=== PATIENT | male | born 1985 | race Caucasian/White ===

== ENCOUNTER 2021-08-28 10:30 | Inpatient (IN) | payer OTHER ==
[2021-08-28 11:04] VITALS: BMI 22.1
[2021-08-28] MEDS ORDERED: METOPROLOL TARTRATE 50 MG TABLET (FP) PO ONE (11:55)
[2021-08-28] MEDS ORDERED: IBUPROFEN 400 MG TABLET (FP) PO PRN (11:55)
[2021-08-28] MEDS ORDERED: LOPERAMIDE HCL 2 MG CAPSULE PO PRN (11:55)
[2021-08-28] MEDS ORDERED: BENZOCAINE/MENTHOL (CHLORASEPTIC ) LOZENGE MM PRN (11:55)
[2021-08-28] MEDS ORDERED: IBUPROFEN 600 MG TABLET (FP) PO PRN (11:55)
[2021-08-28] MEDS ORDERED: BISMUTH SUBSALICYLATE 524 MG/30 ML PO PRN (11:55)
[2021-08-28] MEDS ORDERED: DICYCLOMINE HCL 10 MG CAPSULE PO PRN (11:55)
[2021-08-28] MEDS ORDERED: MELATONIN 5 MG TABLETS PO PRN (11:55)
[2021-08-28] MEDS ORDERED: ACETAMINOPHEN 325 MG TABLET (FP) PO PRN ×2 (11:55)
[2021-08-28] MEDS ORDERED: METHOCARBAMOL 500 MG TABLET PO PRN (11:55)
[2021-08-28] MEDS ORDERED: MAGNESIUM HYDROX 2400MG/30ML ORAL SUSPENSION 30 ML CUP PO PRN (11:55)
[2021-08-28] MEDS ORDERED: ONDANSETRON *ODT* 4 MG TABLET SL PRN (11:55)
[2021-08-28] MEDS ORDERED: MAGNESIUM CITRATE 300 ML BOTTLE PO PRN (11:55)
[2021-08-28] MEDS ORDERED: chlordiazePOXIDE HCL 25 MG CAPSULE PO ONE (11:58)
[2021-08-28] MEDS ORDERED: chlordiazePOXIDE HCL 25 MG CAPSULE PO PRN (11:58)
[2021-08-28] MEDS ORDERED: METOPROLOL TARTRATE 25 MG TABLET (FP) ONE (12:01)
[2021-08-28] MEDS ORDERED: hydrOXYzine PAMOATE 25 MG CAPSULE (FP) PO ONE (13:26)
[2021-08-28] MEDS ORDERED: chlordiazePOXIDE HCL 25 MG CAPSULE ONE (13:26)
[2021-08-28] MEDS: hydrOXYzine PAMOATE 25 MG CAPSULE (FP) PO PRN ×3 (13:31→22:37)
[2021-08-28] MEDS: chlordiazePOXIDE HCL 25 MG CAPSULE PO SCH ×2 (17:39→22:37)
[2021-08-28] MEDS: MAG HYDROX/AL HYDROX/SIMETH 30 ML UNIT-DOSE CUP PO PRN (20:12)
[2021-08-28] MEDS: THIAMINE HCL 100 MG TABLET (FP) PO SCH (22:37)
[2021-08-29] MEDS: chlordiazePOXIDE HCL 25 MG CAPSULE PO SCH ×4 (05:12→22:13)
[2021-08-29] MEDS ORDERED: PRENATAL VITAMINS W/ FOLIC ACID TABLET (FP) PO SCH (10:00)
[2021-08-29] MEDS ORDERED: FAMOTIDINE 20 MG TABLET PO SCH (10:15)
[2021-08-29] MEDS: FAMOTIDINE 20 MG TABLET PO SCH ×2 (10:19→22:13)
[2021-08-29 12:00] LABS: CHLORIDE 93 mmol/L (98-107); SODIUM 137 mmol/L (136-145)
[2021-08-29 12:01] LABS: HEMATOCRIT 48.4 % (35.4-49); HEMOGLOBIN 16.6 GM/dL (11.7-16.9); MCH 32.5 pg (25.7-33.7); MCHC 34.4 g/dl (32.0-35.9); MEAN CELL VOLUME 94.5 fl (80-96); MEAN PLT VOLUME 9.5 fl (7.5-11.1); PLATELET COUNT 114 10^3/uL (134-434); RBC 5.13 M/mm3 (4.00-5.60); RDW 12.5 % (11.9-15.9)
[2021-08-29 12:07] LABS: CALCIUM 9.8 mg/dL (8.5-10.1)
[2021-08-29 12:08] LABS: ALBUMIN 4.1 g/dl (3.4-5.0); BLOOD UREA NITROGEN 5.2 mg/dL (7-18); CO2 32 mmol/L (21-32); GLUCOSE,RANDOM 99 mg/dL (74-106)
[2021-08-29 12:11] LABS: SGOT/AST 47 U/L (15-37); SGPT/ALT 31 U/L (13-61)
[2021-08-29 12:12] LABS: BILIRUBIN,TOTAL 0.7 mg/dL (0.2-1); TOT PROT 7.6 g/dl (6.4-8.2)
[2021-08-29 12:14] LABS: ALK PHOS 123 U/L (45-117)
[2021-08-29 12:40] LABS: ANION GAP 11 MMOL/L (8-16)
[2021-08-29] MEDS: MAG HYDROX/AL HYDROX/SIMETH 30 ML UNIT-DOSE CUP PO PRN (13:02)
[2021-08-29] MEDS ORDERED: POTASSIUM CHLORIDE ORAL LIQUID 20 MEQ/15 ML PO ONE ×2 (14:00→18:00)
[2021-08-29] MEDS: THIAMINE HCL 100 MG TABLET (FP) PO SCH (22:13)
[2021-08-30] MEDS ORDERED: chlordiazePOXIDE HCL 25 MG CAPSULE PO SCH (05:00)
[2021-08-30 09:02] VITALS: BP 129/87; PULSE 123; TEMP 96.9
[2021-08-30] MEDS ORDERED: POTASSIUM CHLORIDE ORAL LIQUID 20 MEQ/15 ML PO SCH (10:00)
[2021-08-31] MEDS ORDERED: chlordiazePOXIDE HCL 10 MG CAPSULE PO PRN
[2021-08-31] MEDS ORDERED: chlordiazePOXIDE HCL 10 MG CAPSULE PO SCH (05:00)
[2021-09-01] MEDS ORDERED: chlordiazePOXIDE HCL 10 MG CAPSULE PO SCH (05:00)
[2021-09-02] MEDS ORDERED: chlordiazePOXIDE HCL 10 MG CAPSULE PO ONE (05:00)
== END 2021-08-30 09:08 | disposition left against medical advice (07) | DRG 894 ==
LOC: YASAS 10:30 → Y6N 13:43
PROVIDERS: ADMIT Allergy & Immunology; ATTEND Surgery
PROC: HZ2ZZZZ Detoxification Services for Substance Abuse Treatment (ICD-10-PCS; principal; 2021-08-28)
DX: F10.230 Alcohol dependence with withdrawal, uncomplicated (principal); E87.6 Hypokalemia
CPT/HCPCS: 36415; 80053; 85027; 86780; 93005; 93010; C9803-CS; U0003; U0005